=== PATIENT | female | born 1980 | race Caucasian/White ===

== ENCOUNTER 2020-02-02 11:22 | Outpatient (CLI) | payer OTHER, SELFPAY ==
--- NOTE | 2020-02-02 11:25 | ECG_ITS ---
Measurements Intervals [place] Rate: 80 P: 46 AL: 152 QRS: 264 QRSD: 103 T: 31 QT: 385 QTc: 444 Interpretive Statements SINUS RHYTHM RIGHT AXIS DEVIATION INCOMPLETE RIGHT BUNDLE BRANCH BLOCK BORDERLINE R WAVE PROGRESSION, ANTERIOR LEADS INFERIOR INFARCT, AGE INDETERMINATE ABNORMAL ECG Electronically Signed On 02-02-2020 11:51:30 CDT by Gabe Mckeon D.O.
[2020-02-02 11:52] LABS: Hematocrit 41.6 % (37.0-47.0); Hemoglobin 14.2 g/dL (12.0-15.0)
== END 2020-02-02 11:23 | disposition home or self-care (01) ==
LOC: ANHSURGERY 11:25
PROVIDERS: Anesthesiology; PCP Physician Assistant; Visit Provider Surgery Plastic and Reconstructive Surgery
DX: L57.4 Cutis laxa senilis (principal); I45.10 Unspecified right bundle-branch block
CPT/HCPCS: 36415; 85014; 85018; 93005

== ENCOUNTER 2020-02-11 04:28 | Outpatient (CLI) | payer OTHER, SELFPAY ==
[2020-02-11 18:08] LABS: SARS-CoV-2 RNA PCR Negative
== END 2020-02-11 04:29 | disposition home or self-care (01) ==
LOC: ANHCOVIDDT 04:28
PROVIDERS: Visit Provider Surgery Plastic and Reconstructive Surgery
DX: Z01.812 Encounter for preprocedural laboratory examination (principal); Z11.59 Encounter for screening for other viral diseases
CPT/HCPCS: 87635; C9803; U0003

== ENCOUNTER 2020-02-14 00:05 | Day surgery (SDC) | payer OTHER, SELFPAY ==
[2020-02-01 11:31] VITALS: BMI 25.3
[2020-02-14] VITALS (14 sets, daily range): BP systolic 107–139; BP diastolic 64–88; PULSE 61–112; RESP 11–18; TEMP 36.3–37.6; O2SAT 91–100
[2020-02-14] MEDS: LACTATED RINGERS 1,000 ML 30 ML IV CONT ×2 (07:50→15:45)
[2020-02-14 07:52] LABS: Urine Cotinine NEGATIVE
--- NOTE | 2020-02-14 09:21 | WPDANESEPPF ---
Anes - Initial Pre Proc Eval Procedure: Operation Date: 02/14/20 09:30 Proposed Procedures p Bilateral Augmentation Mammoplasty, Bilateral Breast Mastopexy(Bilateral) - Wil Maldonado MD s Abdominoplasty - Wil Maldonado MD s With Abdominal Liposuction - Wil Maldonado MD Date/Time: 02/14/20 09:21 Surgeon: Wil Maldonado MD Pre Op Diagnosis: Micromasstia/ Skin Laxity Patient Data Age: 39 Gender: F Height: 5 ft 7 in Weight: 72.1 kg Last Vital Signs Temp 97.4 F L 02/14/20 07:46 Pulse 74 02/14/20 07:46 Resp 18 02/14/20 07:46 BP 139/88 02/14/20 07:46 Pulse Ox 100 02/14/20 07:46 Allergies Allergy/AdvReac Type Severity Reaction Status Date / Time latex Allergy HIVES, Verified 02/14/20 08:15 ITCHING codeine AdvReac Nausea Verified 02/14/20 08:15 Home Medications Medication Instructions Recorded Confirmed Type carisoprodol 350 mg tablet 350 mg PO TID PRN #21 tablet 11/02/19 02/14/20 Rx docusate sodium 100 mg capsule 100 mg PO DAILY #14 cap 11/02/19 02/14/20 Rx hydrocodone 5 mg-acetaminophen 325 1 tablet PO Q6H PRN #15 tablet 11/02/19 02/14/20 Rx mg tablet ondansetron HCl 4 mg tablet 4 mg PO Q8H #28 tablet 11/02/19 02/14/20 Rx cetirizine [Zyrtec] 10 mg PO DAILY PRN 02/01/20 02/14/20 History dextroamphetamine-amphetamine 20 mg PO DAILY 02/01/20 02/14/20 History norgestimate-ethinyl estradiol 1 tablet PO DAILY 02/01/20 02/14/20 History [Tri-Sprintec (28)] valacyclovir 500 mg PO DAILY PRN 02/01/20 02/14/20 History Laboratory Tests 02/14/20 07:31 Cotinine Negative Patient hx anesthesia problems: post op nausea/vomiting (will cover with scopolamine and zofran) Family hx anesthesia problems: none PMFSH Past Medical History Medical History (Updated 02/14/20 @ 09:21 by Angel Mayers MD) ADHD (attention deficit hyperactivity disorder) Surgical History Surgical History History of History of craniotomy Social History Social History Smoking status: Never smoker Alcohol intake: current Anes - Eval Final PreProcedure Day of Procedure 02/14/20 09:21 Patient weight: normal Heart: regular rate and rhythm Lungs: clear to auscultation Airway: Mallampati scale class II Neurological: alert and oriented Last oral intake: >/= 8 hours ASA classification: II Emergent: no Anesthetic plan: proceed Anesthesia type and monitoring: general ETT and standard monitoring Informed Consent: The patient's anesthetic plan and its attendant risks and benefits were discussed with the patient/family/POA. Questions were solicited and answers provided to the satisfaction of the patient/family/POA.
--- NOTE | 2020-02-14 09:43 | PM.IMHP ---
H&P: HPI History of Present Illness Chief complaint: Micromasstia/ Skin Laxity Narrative: Marisa Howe is a 39 year old female who is here for breast augmentation, mastopexy with slight reduction to the left breast, abdominoplasty and abdominal liposuction. She states she has read the consents several times. She would like to proceed. Review of Systems Review of Systems: All systems reviewed & are unremarkable except as noted in HPI and below Constitutional: Constitutional: Reports no additional constitutional complaints Eyes: Eyes: Reports no additional eye complaints Cardiovascular: Cardiovascular: Reports no additional cardiovascular complaints Respiratory: Respiratory: Reports no additional respiratory complaints Gastrointestinal: Gastrointestinal: Reports no additional gastrointestinal complaints Musculoskeletal: Musculoskeletal: Reports no additional musculoskeletal complaints Neurologic: Reports system reviewed and no additional complaints, except as documented PMF Past Medical History Medical History (Updated 02/14/20 @ 09:21 by Angel Mayers MD) ADHD (attention deficit hyperactivity disorder) Surgical History Surgical History (Updated 02/14/20 @ 09:45 by Wil Maldonado MD) History of History of craniotomy Social History Social History Smoking status: Never smoker Alcohol intake: current Meds Home Medications and Allergies Home Medications Medication Instructions Recorded Confirmed Type carisoprodol 350 mg tablet 350 mg PO TID PRN #21 tablet 11/02/19 02/14/20 Rx docusate sodium 100 mg capsule 100 mg PO DAILY #14 cap 11/02/19 02/14/20 Rx hydrocodone 5 mg-acetaminophen 325 1 tablet PO Q6H PRN #15 tablet 11/02/19 02/14/20 Rx mg tablet ondansetron HCl 4 mg tablet 4 mg PO Q8H #28 tablet 11/02/19 02/14/20 Rx cetirizine [Zyrtec] 10 mg PO DAILY PRN 02/01/20 02/14/20 History dextroamphetamine-amphetamine 20 mg PO DAILY 02/01/20 02/14/20 History norgestimate-ethinyl estradiol 1 tablet PO DAILY 02/01/20 02/14/20 History [Tri-Sprintec (28)] valacyclovir 500 mg PO DAILY PRN 02/01/20 02/14/20 History Allergies Allergy/AdvReac Type Severity Reaction Status Date / Time latex Allergy HIVES, Verified 02/14/20 08:15 ITCHING codeine AdvReac Nausea Verified 02/14/20 08:15 Vital Signs Vital Signs - 24 hr 02/14/20 07:46 Temperature 36.3 C L Pulse Rate 74 Respiratory Rate 18 Blood Pressure 139/88 Pulse Oximetry 100 Exam Narrative: Exam Narrative: No breast masses palpable. Abdominal skin laxity. No hernias palpable. Const: General: comfortable, no acute distress, alert and awake; No acute distress Orientation/consciousness: oriented to person HENMT: Head: normal to inspection Ears: external ears normal General nose exam: Normal external nose present Face and sinus: normal facial exam Eyes: General: appearance normal, both eyes and all related structures Periorbital: periorbital findings normal Eyelids: eyelids normal Conjunctivae: conjunctivae normal Neck: Neck: normal visual inspection Chest: Chest palpation & inspection: normal inspection of the chest Resp: Effort & Inspection: normal respiratory effort and able to speak in complete sentences GI: Inspection: normal to inspection Neuro: General: oriented to person Psych: Appearance: grossly normal Mental Status: mental status grossly normal Assessment and Plan Assessment and plan (1) Micromastia: Code(s): N64.82 - Hypoplasia of breast Status: Acute Assessment and Plan: She would like to proceed with bilateral breast augmentation and mastopexy with slight reduction to left breast. Inspira Soft Touch implants, approximately 397 ccs, submuscular. Risks, benefits, alternatives were discussed in extensive detail. I want to be very realistic about the risks involved as well as expectations. Reviewed consent in det
[2020-02-14] MEDS: ONDANSETRON INJ 4 MG/2 ML VIAL IV PUSH (09:50)
[2020-02-14] MEDS: SCOPOLAMINE 1.5 MG PATCH TRANSDERM (09:50)
[2020-02-14] MEDS: ceFAZolin 2 GM/D5W 50 ML 2 GM/50 ML BAG IVPB (09:58)
--- NOTE | 2020-02-14 09:58 | PM.PROC ---
Procedure Note - Detailed Date of procedure: 02/14/20 Pre-op diagnosis: Micromasstia/ Skin Laxity Post-op diagnosis: same Procedure performed: 1. Bilateral augmentation mastopexy 2. Progressive tension abdominoplasty 3. Suction lipectomy abdomen Description of procedure: She is here today for the above procedures. Previously and again today the risks, benefits, alternatives were discussed in extensive detail. I wanted her to be very realistic about the risks involved as well as expectations. We discussed aftercare and what to monitor for. Made sure answered all of her questions to her satisfaction today and consent was obtained. Marked in the preoperative holding area with their verification. The patient was taken to the operating room placed supine on the operating table. Anesthesia was provided by anesthesiology. A surgical time-out was taken. We cleansed the skin and 1% lidocaine and 0.25% Marcaine with epinephrine was used anesthetize as a field block. She was prepped and draped in a standard sterile fashion. Tegaderm nipple Anthony were placed. A 15 blade used to make an incision along the inframammary fold. Dissection was continued till the chest wall as identified. I incised the pectoralis major along its inferior border and completely released the inferior border leaving the medial border intact. I created a subpectoral pocket in the appropriate dimensions based on our preoperative planning for the implant. I then copiously irrigated with saline solution and verified a strict hemostasis. Next the use a triple antibiotic and Betadine containing solution to irrigate the pocket. I washed my gloves with the triple antibiotic and Betadine solution. We washed the implant immediately upon opening it with this solution and only opened it when we needed it. I used implant funnel and no-touch technique. The implant was introduced into the pocket using the funnel. Having verified positioning of the implant this was closed using 2-0 Vicryl. At this point the breast was tailor tacked into place with bernadette. I verified positioning. In a sitting position I marked out the nipple-areolar complex based on our preoperative markings, measurements as well as intraoperative markings and measurements which were in full agreement. A 10 blade used to make the incisions around the areola and the superior pedicle was developed. I then removed a central keel left breast tissue and remove the inferior tissue. Elevated medial and lateral flaps in order to provide mobilization. I copiously irrigated with a saline solution and verified strict hemostasis. I also irrigated with a triple antibiotic Betadine solution. After tailor tacking it was clear she was asymetric and I exchanged the right breast implant for a larger implant for symmetry. I irrigated with triple antibiotic betadine solution prior to closing again. I reapproximated the pillars and along the IMF using 2-0 Vicryl. This was followed by 3-0 Monocryl vertically in around the areola. 3-0 strata fix along the IMF and final closure was using running subcuticular 4-0 Monocryl and tissue glue. We then proceeded the abdominoplasty. I placed the patient in a flexed position to verify the upper and lower markings would reach. I then placed her supine. A thorough abdominal examination was completed. Stab incisions were made and used tumescent solution. I proceeded with S.A.F.E. liposuction using a 4 mm basket cannula in multiple planes and passes to a rolling pinch test based on her preoperative planning. I was very conservative in the central abdomen to protect vascularity. A 10 blade was used to make the upper incision. I continued dissection down to the level of fascia. Elevated just what was necessary for repair of the diastasis and discontinuous undermining otherwise. I then again flexed the bed to verify the upper skin flap would reach the lower markings without tension. Once verified I place
[2020-02-14] MEDS: LIDO 1%/EPINEPHRINE 1:100,000 20 ML VIAL 30 ML INFILTRATE (12:04)
[2020-02-14] MEDS: MORPHINE SULFATE 2 MG/ML INJ IV PUSH (17:25)
[2020-02-14] MEDS: LACTATED RINGERS 1,000 ML 125 ML (17:25)
[2020-02-14] MEDS: carisoprodoL 350 MG TABLET PO ×2 (18:06→23:44)
[2020-02-14] MEDS: oxyCODONE/ACETAMINOPHEN 5-325 MG TABLET PO (21:00)
[2020-02-14] MEDS: DOCUSATE SODIUM 100 MG CAPSULE PO (21:05)
[2020-02-15] MEDS: carisoprodoL 350 MG TABLET PO ×2 (05:37→11:51)
[2020-02-15] MEDS: oxyCODONE/ACETAMINOPHEN 5-325 MG TABLET PO ×2 (05:37→11:56)
[2020-02-15 05:40] VITALS: BP 117/76; PULSE 71; RESP 16; TEMP 36.4; O2SAT 97
--- NOTE | 2020-02-15 06:47 | WPDPN ---
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 Will discharge home. Follow up in 1 week. We will plan for discharge home later today when Tolerating p.o. Ambulating Pain control This morning we spent 20 minutes going over discharge instructions, activity limitations, and what to monitor for. This was an open-ended conversation making sure answered all of her questions to her satisfaction. She understands shortness of breath, chest pain, or other medical emergency is dial 911/proceed to the emergency room, for all other questions feel free to reach out to us at any time. (2) Breast ptosis: Code(s): N64.81 - Ptosis of breast Status: Acute (3) Skin laxity: Code(s): L57.4 - Cutis laxa senilis Status: Acute (4) History of benign brain tumor: Code(s): Z86.011 - Personal history of benign neoplasm of the brain Status: Acute (5) History of : Code(s): Z98.891 - History of uterine scar from previous surgery Status: Acute (6) History of craniotomy: Code(s): Z98.890 - Other specified postprocedural states Status: Acute Review of Systems Review of Systems: All systems reviewed & are unremarkable except as noted in HPI and below Exam Narrative: Exam Narrative: Bilateral breasts are soft. No signs of infection. No hematoma. No seroma. Abdomen is healing well. No signs of infection. No hematoma. No seroma. Good color and capillary refill. No calf tenderness. Negative Homans. Const: General: comfortable, no acute distress, alert and awake; No acute distress Orientation/consciousness: oriented to person HENMT: Head: normal to inspection Ears: external ears normal General nose exam: Normal external nose present Face and sinus: normal facial exam Eyes: General: appearance normal, both eyes and all related structures Periorbital: periorbital findings normal Eyelids: eyelids normal Conjunctivae: conjunctivae normal Neck: Neck: normal visual inspection Chest: Chest palpation & inspection: normal inspection of the chest Resp: Effort & Inspection: normal respiratory effort and able to speak in complete sentences GI: Inspection: normal to inspection Neuro: General: oriented to person Psych: Appearance: grossly normal Mental Status: mental status grossly normal Objective Data Vital Signs Vital Signs: Vital Signs - 24 hr 02/14/20 07:46 02/14/20 15:45 02/14/20 16:00 Temperature 36.3 C L 37.3 C Pulse Rate 74 112 H 105 H Respiratory Rate 18 17 11 L Blood Pressure 139/88 131/77 128/75 Pulse Oximetry 100 100 95 02/14/20 16:15 02/14/20 16:31 02/14/20 16:54 Temperature 36.9 C 37.6 C Pulse Rate 88 75 80 Respiratory Rate 16 14 14 Blood Pressure 121/77 120/79 117/78 Pulse Oximetry 94 94 94 02/14/20 17:00 02/14/20 17:15 02/14/20 17:30 Temperature Pulse Rate 91 88 75 Respiratory Rate 14 14 14 Blood Pressure 114/76 111/79 110/71 Pulse Oximetry 94 91 92 02/14/20 18:30 02/14/20 19:00 02/14/20 20:00 Temperature Pulse Rate Respiratory Rate Blood Pressure 118/76 107/70 109/68 Pulse Oximetry 02/14/20 21:46 02/14/20 23:35 02/15/20 05:40 Temperature 36.8 C 36.9 C 36.4 C L Pulse Rate 76 61 71 Respiratory Rate 17 16 16 Blood Pressure 109/68 110/64 117/76 Pulse Oximetry 100 97 Intake/Output Intake/Output: Intake & Output 02/12/20 02/13/20 02/14/20 02/15/20 23:59 23:59 23:59 23:59 Intake Total 300 Output Total 760 400 Balance -460 -400 Meds/Results Medications: Active Medications Generic Name Dose Route Start Last Admin Trade Name Freq PRN Reason Stop Dose Admin Carisoprodol 350 mg 02/14/20 18:00 02/15/20 05:37 Soma PO 350 mg Q6HR CHARLIE Administration Docusate Sodium 10
--- NOTE | 2020-02-15 06:50 | P.DS_ITS ---
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 (2) Breast ptosis: Code(s): N64.81 - Ptosis of breast Status: Acute (3) Skin laxity: Code(s): L57.4 - Cutis laxa senilis Status: Acute DS: Summary Time Spent with Patient Time attestation: Total time spent providing and/or coordinating discharge services: 20 minutes Exam Narrative: Exam Narrative: Bilateral breasts are soft. No signs of infection. No hematoma. No seroma. Abdomen is healing well. No signs of infection. No hematoma. No seroma. Good color and capillary refill. No calf tenderness. Negative Homans. Const: General: comfortable, no acute distress, alert and awake; No acute distress Orientation/consciousness: oriented to person HENMT: Head: normal to inspection Ears: external ears normal General nose exam: Normal external nose present Face and sinus: normal facial exam Eyes: General: appearance normal, both eyes and all related structures Periorbital: periorbital findings normal Eyelids: eyelids normal Conjunctivae: conjunctivae normal Neck: Neck: normal visual inspection Chest: Chest palpation & inspection: normal inspection of the chest Resp: Effort & Inspection: normal respiratory effort and able to speak in complete sentences GI: Inspection: normal to inspection Neuro: General: oriented to person Psych: Appearance: grossly normal Mental Status: mental status grossly normal DS: Data Data Completed and Pending Labs on day of discharge: Labs from last 24 hours 02/14/20 07:31 Cotinine Negative Discharge Plan Discharge Patient Disposition: Home, Self-Care Discharge Instructions: POST OPERATIVE DISCHARGE INSTRUCTIONS FOR MARISA OCONNELL M.D. [facility] PLASTIC SURGERY [facility] [place] [address] * No driving for 24 hours after anesthesia and while you are taking pain medication. * Take all prescribed medication as directed * Diet as tolerated. * No lifting or activity that raises blood pressure for 48 hours. * Regular walking / ambulation. * No showering until directed to. Once you shower do not take pain medication before showering as the combination of medication and heat may cause you to feel dizzy or pass out. * No pools or tubs for 2 weeks. * Call with any questions or concerns. * Dressing Care: Abdominal binder and surgical bra 23 hours per day. May shower. * No lifting more than 20 pounds / straining. * Slowly stand up straight as tolerated. * Remove the Scopolamine patch that was placed behind your ear in 72 hours or less. Wash your hands after touching. If you have any questions or concerns, please call the office . If it is after hours you will be directed to the international coordinator exchange. Shortness of breath, chest pain, or other medical emergency dial 911 / proceed to the Emergency Room.
--- NOTE | 2020-02-15 06:50 | PM.DS ---
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 (2) Breast ptosis: Code(s): N64.81 - Ptosis of breast Status: Acute (3) Skin laxity: Code(s): L57.4 - Cutis laxa senilis Status: Acute DS: Summary Time Spent with Patient Time attestation: Total time spent providing and/or coordinating discharge services: 20 minutes Exam Narrative: Exam Narrative: Bilateral breasts are soft. No signs of infection. No hematoma. No seroma. Abdomen is healing well. No signs of infection. No hematoma. No seroma. Good color and capillary refill. No calf tenderness. Negative Homans. Const: General: comfortable, no acute distress, alert and awake; No acute distress Orientation/consciousness: oriented to person HENMT: Head: normal to inspection Ears: external ears normal General nose exam: Normal external nose present Face and sinus: normal facial exam Eyes: General: appearance normal, both eyes and all related structures Periorbital: periorbital findings normal Eyelids: eyelids normal Conjunctivae: conjunctivae normal Neck: Neck: normal visual inspection Chest: Chest palpation & inspection: normal inspection of the chest Resp: Effort & Inspection: normal respiratory effort and able to speak in complete sentences GI: Inspection: normal to inspection Neuro: General: oriented to person Psych: Appearance: grossly normal Mental Status: mental status grossly normal DS: Data Data Completed and Pending Labs on day of discharge: Labs from last 24 hours 02/14/20 07:31 Cotinine Negative Discharge Plan Discharge Patient Disposition: Home, Self-Care Discharge Instructions: POST OPERATIVE DISCHARGE INSTRUCTIONS FOR WIL MALDONADO M.D. [facility] [address] [facility] [address] [place] [address] [address] for 24 hours after anesthesia and while you are taking pain medication. Take all prescribed medication as directed Diet as tolerated. No lifting or activity that raises blood pressure for 48 hours. Regular walking / ambulation. No showering until directed to. Once you shower do not take pain medication before showering as the combination of medication and heat may cause you to feel dizzy or pass out. No pools or tubs for 2 weeks. Call with any questions or concerns. Dressing Care: Abdominal binder and surgical bra 23 hours per day. May shower. No lifting more than 20 pounds / straining. Slowly stand up straight as tolerated. Remove the Scopolamine patch that was placed behind your ear in 72 hours or less. Wash your hands after touching. If you have any questions or concerns, please call the office . If it is after hours you will be directed to the meat products demonstrator exchange. Shortness of breath, chest pain, or other medical emergency dial 911 / proceed to the Emergency Room. Follow-up/Referrals: Wil Maldonado MD [Physician] - 1 Week Discharge Medications: Continued ondansetron HCl [Zofran] 4 mg tablet 4 mg PO Q8H Qty: 28 RF: 0 docusate sodium [Colace] 100 mg capsule 100 mg PO DAILY Qty: 14 RF: 0 carisoprodol [Soma] 350 mg tablet 350 mg PO TID PRN (Reason: muscle pain) Qty: 21 RF: 0 cetirizine [Zyrtec] 10 mg Tablet 10 mg PO DAILY PRN (Reason: Allergic Symptoms) RF: 0 valacyclovir 500 mg tablet 500 mg PO DAILY PRN (Reason: Outbreak) RF: 0 dextroamphetamine-amphetamine 20 mg capsule,extended release 24hr 20 mg PO DAILY RF: 0 norgestimate-ethinyl estradiol [Tri-Sprintec (28)] 0.18/0.215/0.25 mg-35 mcg (28) tablet 1 tablet PO DAILY RF: 0 Held hydrocodon
[2020-02-15 07:45] VITALS: BP 120/74; PULSE 73; RESP 18; TEMP 36.7; O2SAT 99
[2020-02-15] MEDS: ONDANSETRON INJ 4 MG/2 ML VIAL IV PUSH (09:07)
--- NOTE | 2020-02-15 09:46 | WPDANESPN ---
Anes - Prog Note Post-Op Date/Time: 02/15/20 09:46 Cardiovascular status: normal Respiratory status: normal Airway patency: baseline Mental status: baseline Post-Op hydration status: normal Vital Signs: Last Vital Signs Temp 36.7 C 02/15/20 07:45 Pulse 73 02/15/20 07:45 Resp 18 02/15/20 07:45 BP 120/74 02/15/20 07:45 Pulse Ox 99 02/15/20 07:45 I/O: Intake & Output 02/14/20 02/15/20 02/15/20 23:59 07:59 15:59 Intake Total 300 Output Total 760 400 Balance -460 -400 Post-procedural complaints: none Patient Feedback: Patient satisfied with anesthetic care.
[2020-02-15] MEDS: ENOXAPARIN 40 MG/0.4 ML SYRINGE SUB-Q (11:51)
[2020-02-15] MEDS: DOCUSATE SODIUM 100 MG CAPSULE PO (11:51)
== END 2020-02-15 13:14 | disposition home or self-care (01) ==
LOC: ANHSURGERY 10:09 → ANHOB2 17:10
PROVIDERS: Visit Provider Surgery Plastic and Reconstructive Surgery
PROC: (CPT 15830; principal; 2020-02-14 09:30)
PROC: (CPT 15830; 2020-02-14 09:30)
PROC: (CPT 15877; 2020-02-14 09:30)
DX: Z41.1 Encounter for cosmetic surgery (principal); L57.4 Cutis laxa senilis; N64.82 Hypoplasia of breast; N64.81 Ptosis of breast; F90.9 Attention-deficit hyperactivity disorder, unspecified type; Z86.011 Personal history of benign neoplasm of the brain
CPT/HCPCS: 15830; 15847; 15877; 19325; 19316; 36415; 80307; 99199; A9270; C9290; J0131; J0171; J0330; J0690; J1100; J1170; J1580; J1650; J2250; J2270; J2405; J2704; J3010; J7030; J7120